=== PATIENT | female | born 1935 | race Caucasian/White ===

== ENCOUNTER → 2016-03-14 | Outpatient (CLI) | payer MEDICARE, BC ==
[~2016-03-14] MED LIST: ASPI1TAB69 PO; ASPI81TA11 PO; ASPI81TA82 PO; CALC1TAB87 PO; CALC500T15 PO; CART120C PO; CART120C2 PO; CENTTAB PO; DYAZ PO; GLUC750T22 OR; GLUCTAB6 PO; HYDR-3516 PO; ISOS10TA PO; ISOSM20 PO; LACTCAP8 PO; METF750T PO; MULT1TAB PO; OMEG100010 PO; SIMV40 PO; TRIA37.53 PO; ZOCO40TA PO; [UNRECOGNIZED DRUG - CODE] PO; [UNRECOGNIZED DRUG - CODE] PO; [UNRECOGNIZED DRUG - OTHER] PO
[2016-03-14 14:02] LABS: AUTOMATED NEUTROPHIL # 5.4 TH/MM3 (1.8-7.7); BASOPHIL # 0.1 TH/MM3 (0-0.2); BASOPHIL % 0.8 % (0.0-2.0); EOSINOPHIL # 0.3 TH/MM3 (0-0.4); EOSINOPHIL % 3.5 % (0.0-4.0); HEMATOCRIT 42.4 % (35.0-46.0); HEMO FLAGS DIFF FINAL; LYMPH % 27.7 % (9.0-44.0); LYMPHOCYTE # 2.4 TH/MM3 (1.0-4.8); MEAN CELL VOLUME 81.6 FL (80.0-100.0); MEAN CORPUSCULAR HEMOGLOBIN 27.6 PG (27.0-34.0); MEAN CORPUSCULAR HGB CONC 33.8 % (32.0-36.0); MONO % 6.4 % (0.0-8.0); NEUT % 61.6 % (16.0-70.0); PLATELET COUNT 257 TH/MM3 (150-450); RED CELL DISTRIBUTION WIDTH 14.9 % (11.6-17.2); WHITE BLOOD COUNT 8.7 TH/MM3 (4.0-11.0)
[2016-03-14 14:05] LABS: BLOOD, URINE NEG (NEG); GLUCOSE,URINE NEG (NEG); KETONE, URINE NEG (NEG); NITRITE,URINE NEG (NEG); PH, URINE 6.5 (5.0-8.5); SQUAMOUS EPITHELIAL CELL URINE 1 /hpf (0-5); TRANSITIONAL EPI CELLS, URINE <1 /hpf; URINE COLOR YELLOW (YELLW/STRAW)
[2016-03-14 14:06] LABS: COMMENT (UR) CULT NOT INDICATED; CULTURE IF INDICATED CULT NOT INDICATED
[2016-03-14 14:34] LABS: BICARBONATE 28.1 MEQ/L (21.0-32.0); POTASSIUM 3.9 MEQ/L (3.5-5.1)
--- NOTE | 2016-03-14 15:59 | RADRPT ---
EXAM DATE/TIME: 03/14/2016 15:29 [place] COMPARISON: No previous studies available for comparison. INDICATIONS : Evaluate for pneumonia, pneumothorax or communicable disease. Preop for A&P, bladder and rectal wall repair on 03/16/16 MEDICAL HISTORY : None. SURGICAL HISTORY : None. ENCOUNTER: Initial ACUITY: 1 day PAIN SCORE: 0/10 LOCATION: Bilateral chest FINDINGS: The cardiac and mediastinal contours are within normal limits. The lungs demonstrate chronic intersti tial changes but are otherwise clear. The visualized bony structures are grossly intact. CONCLUSION: 1. No acute cardiopulmonary findings. Michi Honeycutt MD on March 14, 2016 at 15:57 Board Certified Radiologist. This report was verified electronically.
--- NOTE | 2016-03-15 16:23 | EKG ---
Date Performed: 03/14/2016 Time Performed: 13:51:36 PTAGE: 80 years EKG: Sinus rhythm Since previous tracing, no significant change noted BORDERLINE ECG PREVIOUS TRACING : 06/07/2011 06.40 DOCTOR: Casandra Gibbs Interpretating Date/Time 03/15/2016 16:21:10
== END ==
LOC: CPRE 13:22
PROVIDERS: ATTEND Obstetrics & Gynecology
DX: Z01.810 Encounter for preprocedural cardiovascular examination (principal); Z01.812 Encounter for preprocedural laboratory examination; Z01.818 Encounter for other preprocedural examination; N81.10 Cystocele, unspecified; N81.6 Rectocele; N81.5 Vaginal enterocele
CPT/HCPCS: 36415; 71020; 80048; 81001; 85025; 93005

== ENCOUNTER 2016-03-16 11:56 | Observation (INO) | payer MEDICARE, BC ==
--- NOTE | 2016-03-15 11:09 | MH ---
cc: HAILEY MILLER M.D. DATE OF ADMISSION 03/16/2016 ADMISSION DIAGNOSIS Cystocele, rectocele, enterocele. HISTORY OF PRESENT ILLNESS This is a 80-year-old single white female para 2-0-0-2 with a history of recurrent prolapse tissue of vagina refractory to conservative care, she is now admitted for repair procedure. PAST MEDICAL HISTORY Her past medical history is extensive: 1. Tonsillectomy in 1941 2. Appendectomy 1961 3. Hysterectomy with left salpingo-oophorectomy in 1984 4. Laparoscopic cholecystectomy in 1988 5. Left breast biopsy in 1993 6. Fractured left ankle in 1994 requiring pins and plate 7. She has multiple eye procedures. 8. She has had AP repair in 2005. MEDICATIONS Medications include: 1. Cartia 2. Triamterine, hydrochlorothiazide 3. Zocor 4. Isosorbide ALLERGIES None TRANSFUSIONS None OBSTETRICAL HISTORY Two vaginal delivers. SOCIAL HISTORY Retired, single. Alcohol, tobacco and drugs are none. FAMILY HISTORY Noncontributory PHYSICAL EXAM Exam reveals an elderly white female. VITAL SIGNS: Stable. HEENT: Exam is normal. CHEST: Clear. CARDIAC: Regular rate. BREASTS: Symmetrical. ABDOMEN: Benign. PELVIC: Reveals a second and third-degree cystocele, rectocele, and enterocele. Bimanual no mass or pain. ASSESSMENT As above. PLAN She is now admitted vaginal AP repair, closure of enterocele. While in the office, I explained the procedures, the risks, benefits and complications and possibly recurrent prolapse and patient would like to proceed. MD NINO Newby/MEGHA /8:10 AM /10:59 AM
[~2016-03-16] VITALS: Ht 154.9 cm; Wt 88.0 kg
[~2016-03-16 11:56] MED LIST changes: -ASPI81TA11 PO; -ASPI81TA82 PO; -CALC1TAB87 PO; -CART120C2 PO; -DYAZ PO; -GLUC750T22 OR; -HYDR-3516 PO; -ISOSM20 PO; -LACTCAP8 PO; -MULT1TAB PO; -SIMV40 PO; -[UNRECOGNIZED DRUG - CODE] PO; -[UNRECOGNIZED DRUG - OTHER] PO
[2016-03-16] MEDS ORDERED: KETOROLAC TROMETHAMINE 60 MG/2 ML (IM) VIAL IM ONE (12:00)
[2016-03-16] MEDS ORDERED: ePHEDrine/NS 50 MG/5 ML SYR IV ONE (12:00)
[2016-03-16] MEDS ORDERED: ONDANSETRON HCL 4 MG/2 ML VIAL IV PUSH ONE (12:00)
[2016-03-16] MEDS ORDERED: LACTATED RINGER'S 1000 ML IV SCH (12:00)
[2016-03-16] MEDS ORDERED: PROPOFOL 200 MG/20 ML AMP IV ONE (12:00)
[2016-03-16] MEDS ORDERED: SODIUM CHLORID 0.9% 500 ML IV SCH (12:00)
[2016-03-16] MEDS ORDERED: ACETAMINOPHEN 1000 MG/100 ML VIAL IV SCH (12:30)
[2016-03-16] MEDS ORDERED: METOPROLOL TARTRATE 25 MG TAB PO PRN (12:30)
[2016-03-16] MEDS ORDERED: INSULIN HUMAN REGULAR 1,000 UNITS/10 ML VIAL SQ PRN (12:30)
[2016-03-16] MEDS ORDERED: ceFAZolin 2 GM PREMIX 50 ML IV SCH (12:30)
[2016-03-16 12:43] VITALS: BP 160/80; PULSE 62; RESP 20; TEMP 98.6; O2SAT 97
[2016-03-16] MEDS ORDERED: ESTROGENS CONJUGATED VAG CREA 15 APPL/30 GM TUBE ONE (15:02)
[2016-03-16] MEDS ORDERED: FAMOTIDINE 20 MG/2 ML VIAL ONE (15:04)
[2016-03-16] MEDS ORDERED: MIDAZOLAM HCL 2 MG/2 ML VIAL ONE (15:04)
[2016-03-16] MEDS ORDERED: DEXAMETHASONE SOD PHOS 4 MG/ML VIAL ONE (15:04)
[2016-03-16] MEDS ORDERED: fentaNYL CITRATE 250 MCG/5 ML AMP ONE (15:09)
[2016-03-16] MEDS ORDERED: SUGAMMADEX SODIUM 200 MG/2 ML VIAL IV PUSH ONE ×2 (16:05)
[2016-03-16] MEDS ORDERED: ONDANSETRON ODT 4 MG TAB PO PRN (16:15)
[2016-03-16] MEDS ORDERED: SODIUM CHLORIDE 0.9% FLUSH 5 ML FLUSH FLUSH PRN (16:15)
[2016-03-16] MEDS ORDERED: ONDANSETRON HCL 4 MG/2 ML VIAL IV PRN (16:15)
[2016-03-16] MEDS ORDERED: HYDROmorphone HCL PF 1 MG/ML VIAL IV PRN (16:15)
[2016-03-16] MEDS ORDERED: PROMETHAZINE INJ 25 MG/ML VIAL IM PRN (16:15)
[2016-03-16] MEDS ORDERED: ZOLPIDEM TARTRATE 5 MG TAB PO PRN (16:15)
[2016-03-16] MEDS ORDERED: PROMETHAZINE HCL 25 MG TAB PO PRN (16:15)
[2016-03-16] MEDS ORDERED: diphenhydrAMINE HCL 25 MG CAP PO PRN (16:15)
[2016-03-16] MEDS: DOCUSATE SODIUM 100 MG CAP PO SCH (16:30)
[2016-03-16] MEDS ORDERED: DO NOT ADM ANY ANTICOAGULANT DRUGS XX PRN (16:45)
[2016-03-16] MEDS ORDERED: ONDANSETRON INJ 8 MG in DEXTROSE 5% IN WATER INJ 50 ML IV PRN ×2 (16:45)
[2016-03-16] MEDS ORDERED: PILL SPLITTER OTHER PRN (16:45)
[2016-03-16] MEDS: D5-1/2 NS + KCL 20 MEQ INJ 1,000 ML IV SCH (17:00)
[2016-03-16 17:51] VITALS: BP 121/58; PULSE 66; RESP 16; TEMP 96.4; O2SAT 94
[2016-03-16 20:13] VITALS: BP 146/60; PULSE 80; RESP 18; TEMP 96.4; O2SAT 94
[2016-03-16] MEDS ORDERED: SODIUM CHLORIDE 0.9% FLUSH 5 ML FLUSH FLUSH SCH (21:00)
[2016-03-17] VITALS: BP 134/63; PULSE 82; RESP 18; TEMP 97.4; O2SAT 97
[2016-03-17] MEDS: DOCUSATE SODIUM 100 MG CAP PO SCH ×2 (00:06→08:48)
[2016-03-17] MEDS: ISOSORBIDE DINITRATE 10 MG TAB PO SCH ×2 (00:07→08:47)
[2016-03-17] MEDS: ACETAMINOPHEN 1000 MG/100 ML VIAL IV SCH ×2 (00:08→06:54)
[2016-03-17] MEDS: D5-1/2 NS + KCL 20 MEQ INJ 1,000 ML IV SCH (00:09)
[2016-03-17] MEDS: KETOROLAC TROMETHAMINE 30 MG/ML (IVP) VIAL IVP SCH ×2 (00:10→06:53)
[2016-03-17 05:00] VITALS: BP 115/54; PULSE 68; RESP 16; TEMP 97.1; O2SAT 97
[2016-03-17 06:59] LABS: AUTOMATED NEUTROPHIL # 9.6 TH/MM3 (1.8-7.7); BASOPHIL % 0.1 % (0.0-2.0); HEMATOCRIT 36.9 % (35.0-46.0); HEMO FLAGS DIFF FINAL; LYMPH % 6.7 % (9.0-44.0); LYMPHOCYTE # 0.7 TH/MM3 (1.0-4.8); MEAN CORPUSCULAR HEMOGLOBIN 27.6 PG (27.0-34.0); MONO % 2.1 % (0.0-8.0); NEUT % 91.1 % (16.0-70.0); PLATELET COUNT 215 TH/MM3 (150-450); RED BLOOD COUNT 4.55 MIL/MM3 (4.00-5.30); WHITE BLOOD COUNT 10.6 TH/MM3 (4.0-11.0)
[2016-03-17 07:03] LABS: BICARBONATE 25.6 MEQ/L (21.0-32.0); POTASSIUM 3.8 MEQ/L (3.5-5.1)
[2016-03-17 07:35] VITALS: BP 126/63; PULSE 66; RESP 20; TEMP 96.3; O2SAT 97
[2016-03-17 08:10] VITALS: O2SAT 95
--- NOTE | 2016-03-17 08:39 | HHI.DCPOC ---
Discharge Care Plan Report Symptoms to Your Doctor -Temperate above 100.5 degrees -Redness, of incision or excessive or foul smelling drainage -Unusual pain or calf pain -Increased vaginal bleeding -Painful or difficulty urinating -Feelings of extreme sadness or anxiety after 2 weeks Goals to Promote Your Health * To prevent worsening of your condition and complications * To maintain your health at the optimal level Directions to Meet Your Goals Take your medications as prescribed Follow your dietary instruction Follow activity as directed Ensure plenty of rest for recovery Drink fluids for hydration Keep your appointments as scheduled Take your immunizations and boosters as scheduled If your symptoms worsen call your PCP, if no PCP go to Urgent Care Center or Emergency Room Smoking is Dangerous to Your Health. Avoid second hand smoke Call the 24-hour crisis hotline for domestic abuse at rFitz Ramirez MD Mar 17, 2016 08:39
[2016-03-17] MEDS ORDERED: TRIAMTERENE/HCTZ 37.5 MG/25 MG CAP PO SCH (09:00)
[2016-03-17] MEDS ORDERED: metFORMIN HCL 500 MG TAB PO SCH (09:00)
[2016-03-17] MEDS ORDERED: DILTIAZEM-CD 120 MG CAP ER PO SCH (09:00)
--- NOTE | 2016-03-22 18:32 | MP ---
cc: HAILEY MILLER DATE OF SURGERY 03/16/2016 PREOPERATIVE DIAGNOSIS Rectocele, cystocele, enterocele. POSTOPERATIVE DIAGNOSIS Rectocele, cystocele, enterocele. PROCEDURE Vaginal AP repair, vaginal closure of enterocele. ANESTHESIA General ET ESTIMATED BLOOD LOSS About 50 cc or less FLUIDS 700 cc crystalloid OBJECTIVE FINDINGS Following induction of adequate general endotracheal anesthesia, the patient was prepped and draped supine on the operating table dorsolithotomy position in the usual sterile fashion with the bladder being drained via Singh catheterization. Examination revealed a third-degree rectocele, second degree enterocele and a very small cystocele at the base of the bladder. The repair was performed by opening up the perineum with a V-shaped wedge of scar tissue removed. The perineum was held with Allis clamps. The vagina was undermined using Allis clamps for traction, Metzenbaum scissors for dissection over the rectocele, enterocele and the cystocele. The vaginal mucosa was from the underlying perivesical fascia, enterocele sac and the perirectal fascia. The base of the bladder was reapproximated with 2-0 stitches in [place] fashion to approximate the perivesical fascia and then the excess anterior vaginal mucosa was trimmed and reapproximated with a interrupted 2-0 Vicryl in [id number] fashion. The enterocele sac was plicated with 2-0 Vicryl stitches and the rectocele was corrected with a running stitch of 2-0 Vicryl pulling the perirectal fascia over the rectocele in two layers with a running stitch. Excess posterior vaginal mucosa was trimmed and the posterior vaginal wall was closed with running locking stitch of 2-0 Vicryl. The perineum was now reapproximated with a running interrupted stitch of 0-Vicryl and a running 2-0 Vicryl. Post completion of the procedure, this revealed good support, good hemostasis. No bleeding. Vagina was packed with 2-inch gauze moistened with Premarin cream. Rectal exam was normal. All counts were correct. The patient's legs taken out of the stirrups and she was awakened and taken to the recovery room in good position. MD NINO Newby/MEGHA /4:17 PM /6:23 PM
== END 2016-03-17 09:47 | disposition home or self-care (01) ==
LOC: HSDC 11:56 → HSDI 16:13 → HOCA 17:19
PROVIDERS: ADMIT Obstetrics & Gynecology; ATTEND Obstetrics & Gynecology
DX: N81.10 Cystocele, unspecified (principal); N81.6 Rectocele; N81.5 Vaginal enterocele; I10 Essential (primary) hypertension; E78.5 Hyperlipidemia, unspecified; E11.9 Type 2 diabetes mellitus without complications; Z79.84 Long term (current) use of oral hypoglycemic drugs; Z90.49 Acquired absence of other specified parts of digestive tract
CPT/HCPCS: 00942; 57265; 80048; 82948; 85025; 88302; 94150; G0378; J0131; J0690; J1100; J1885; J2250; J2405; J3010; J3480; J7120

== ENCOUNTER 2016-07-21 16:42 | Inpatient (IN) | payer MEDICARE, BC ==
[~2016-07-21] VITALS: Ht 156.2 cm; Wt 87.2 kg
[~2016-07-21 16:42] MED LIST changes: -ASPI1TAB69 PO; -CALC500T15 PO; -CENTTAB PO; -[UNRECOGNIZED DRUG - CODE] PO
[2016-08-03] MEDS ORDERED: [UNRECOGNIZED DRUG - CODE] PO (08:59)
[2016-08-03] MEDS ORDERED: CALC1TAB87 PO (09:02)
[2016-08-03] MEDS ORDERED: MULT1TAB PO (09:03)
[2016-08-03] MEDS ORDERED: ASPI81TA11 PO (09:04)
[2016-08-03] MEDS ORDERED: LACTCAP8 PO (09:05)
[2016-08-10 11:25] VITALS: BP 116/67; PULSE 81; RESP 18; TEMP 98.9; O2SAT 98
[2016-08-10] MEDS ORDERED: BUPIVACAINE/EPINEPHRINE 0.5% PF 10 ML VIAL ONE (11:28)
[2016-08-10] MEDS ORDERED: METRONIDAZOLE 500 MG/100 ML ISONTONIC SOLN IV SCH (11:30)
[2016-08-10] MEDS ORDERED: CHLORHEXIDINE GLUCONATE 2 % 1 PACK (2 CLOTHS) TOPICAL PRN (11:30)
[2016-08-10] MEDS ORDERED: SODIUM CHLORID 0.9% 500 ML IV PRN (11:30)
[2016-08-10] MEDS ORDERED: INSULIN HUMAN REGULAR 1,000 UNITS/10 ML VIAL SQ PRN (11:30)
[2016-08-10] MEDS ORDERED: POVIDONE IODINE 5% (ANTISEPSIS KIT) 4 APPLICATIONS EACH NARE PRN (11:30)
[2016-08-10] MEDS ORDERED: METOPROLOL TARTRATE 25 MG TAB PO PRN (11:30)
[2016-08-10] MEDS: DEXT 5%-NACL 0.9% 1000 ML INJ 1,000 ML IV SCH ×2 (11:30→19:30)
[2016-08-10] MEDS ORDERED: ALVIMOPAN 12 MG CAPSULE - On Call PO SCH (11:30)
[2016-08-10] MEDS ORDERED: LACTATED RINGER'S 1000 ML IV PRN (11:30)
[2016-08-10] MEDS ORDERED: ceFAZolin 1,000 MG/NS 100 ML IV SCH ×2 (11:30)
[2016-08-10] MEDS: ALVIMOPAN 12 MG CAPSULE - Post-op dosing PO SCH (11:35)
[2016-08-10] MEDS ORDERED: ONDANSETRON HCL 4 MG/2 ML VIAL IV PUSH ONE (12:00)
[2016-08-10] MEDS ORDERED: PROPOFOL 200 MG/20 ML AMP IV ONE (12:00)
[2016-08-10] MEDS ORDERED: FAMOTIDINE 20 MG/2 ML VIAL ONE ×2 (12:12→12:59)
--- NOTE | 2016-08-10 12:54 | PD.HP.UP ---
H&P Update Note The Pre-Admit History and Physical Examination regarding the above named patient was reviewed (including, but not limited to, vital signs, heart, lungs, co-morbid conditions), and upon re-examination it is noted that: the patient's condition has not significantly changed since the last examination. Andres Coleman MD Aug 10, 2016 12:54
[2016-08-10] MEDS ORDERED: MIDAZOLAM HCL 2 MG/2 ML VIAL ONE (13:00)
[2016-08-10] MEDS ORDERED: DEXAMETHASONE SOD PHOS 4 MG/ML VIAL ONE (13:00)
[2016-08-10] MEDS ORDERED: SILVER SULFADIAZINE/LIDOCAINE CREAM 60 GM JAR SCH (13:15)
[2016-08-10] MEDS ORDERED: LIDOCAINE 1%/EPINEPHrine 1:100,000 SOLN 30 ML VIAL INFIL ONE (13:28)
[2016-08-10] MEDS ORDERED: SUGAMMADEX SODIUM 200 MG/2 ML VIAL IV PUSH ONE ×2 (14:15)
[2016-08-10] MEDS: D5-NS + KCL 20 MEQ INJ 1,000 ML IV SCH (14:47)
[2016-08-10] MEDS ORDERED: fentaNYL CITRATE 250 MCG/5 ML AMP ONE (14:55)
[2016-08-10] MEDS ORDERED: Post-op Orders (for Pharmacy) MISC XX ONE (15:00)
[2016-08-10] MEDS ORDERED: ONDANSETRON HCL 4 MG/2 ML VIAL IV PRN (15:00)
[2016-08-10] MEDS ORDERED: POTASSIUM CHLOR 40 MEQ PREMIX 100 ML IV PRN (15:00)
[2016-08-10] MEDS ORDERED: ENALAPRILAT 2.5 MG/2 ML VIAL IV PRN (15:00)
[2016-08-10] MEDS ORDERED: POTASSIUM CHLOR 20 MEQ PREMIX 100 ML IV PRN (15:00)
[2016-08-10] MEDS ORDERED: NALOXONE HCL 0.4 MG/ML AMP IV PRN (15:00)
[2016-08-10] MEDS ORDERED: ACETAMINOPHEN/HYDROcodone 325 MG/5 MG TAB PO PRN ×2 (15:00)
[2016-08-10] MEDS ORDERED: MORPHINE SULFATE 30 MG/30 ML PCA IV SCH (15:00)
[2016-08-10] MEDS ORDERED: BENZOCAINE 6 MG/MENTHOL 10 MG LOZENGE BUCCAL PRN (15:00)
[2016-08-10] MEDS ORDERED: ACETAMINOPHEN 325 MG TAB PO PRN (15:00)
[2016-08-10] MEDS ORDERED: SODIUM CHLORIDE 0.9% FLUSH 5 ML FLUSH IVF PRN (15:00)
[2016-08-10] MEDS ORDERED: BUPIVACAINE HCL PF 0.5% 30 ML VIAL NB SCH (15:00)
[2016-08-10] MEDS ORDERED: KETOROLAC TROMETHAMINE 30 MG/ML (IVP) VIAL IVP PRN (15:00)
[2016-08-10] MEDS ORDERED: ENALAPRILAT 1.25 MG/ML VIAL IV PRN (15:00)
[2016-08-10 16:00] VITALS: BP 132/86; PULSE 67; RESP 19; TEMP 96.6; O2SAT 95
[2016-08-10] MEDS ORDERED: GLUCAGON 1 MG/ML VIAL OTHER PRN (17:00)
[2016-08-10] MEDS: DILTIAZEM-CD 120 MG CAP ER PO SCH (17:00)
[2016-08-10] MEDS ORDERED: DEXTROSE 50% IN WATER 50 ML VIAL(D50) IV PRN (17:00)
[2016-08-10] MEDS: ISOSORBIDE DINITRATE 10 MG TAB PO SCH (17:25)
[2016-08-10 18:08] VITALS: O2SAT 95
[2016-08-10 20:00] VITALS: BP 151/67; PULSE 69; RESP 16; TEMP 96.6; O2SAT 93
[2016-08-10] MEDS: SODIUM CHLORIDE 0.9% FLUSH 5 ML FLUSH IVF SCH (20:09)
[2016-08-10] MEDS: metroNIDAZOLE 500 MG INJ 100 ML IV SCH (20:09)
[2016-08-10] MEDS: INSULIN NovoLIN REGULAR SUPPLEMENTAL SCALE SQ SCH (20:09)
[2016-08-10] MEDS: PCA - TOTAL MG MORPHINE DELIVERED PER SHIFT SCH (20:10)
[2016-08-11] VITALS (8 sets, daily range): BP systolic 112–150; BP diastolic 58–67; PULSE 55–74; RESP 17–18; TEMP 96.4–98.4; O2SAT 92–97
[2016-08-11] MEDS: D5-NS + KCL 20 MEQ INJ 1,000 ML IV SCH ×4 (01:00→18:07)
[2016-08-11] MEDS: DEXT 5%-NACL 0.9% 1000 ML INJ 1,000 ML IV SCH ×3 (03:30→16:48)
[2016-08-11 05:06] LABS: AUTOMATED NEUTROPHIL # 9.1 TH/MM3 (1.8-7.7); BASOPHIL % 0.1 % (0.0-2.0); HEMATOCRIT 37.2 % (35.0-46.0); HEMO FLAGS DIFF FINAL; LYMPHOCYTE # 0.6 TH/MM3 (1.0-4.8); MEAN CELL VOLUME 80.8 FL (80.0-100.0); MEAN CORPUSCULAR HEMOGLOBIN 27.6 PG (27.0-34.0); MEAN CORPUSCULAR HGB CONC 34.1 % (32.0-36.0); MONO % 4.1 % (0.0-8.0); NEUT % 89.8 % (16.0-70.0); PLATELET COUNT 217 TH/MM3 (150-450); RED BLOOD COUNT 4.61 MIL/MM3 (4.00-5.30); RED CELL DISTRIBUTION WIDTH 15.3 % (11.6-17.2); WHITE BLOOD COUNT 10.1 TH/MM3 (4.0-11.0)
[2016-08-11 05:24] LABS: BICARBONATE 25.9 MEQ/L (21.0-32.0); POTASSIUM 3.7 MEQ/L (3.5-5.1)
[2016-08-11] MEDS: metroNIDAZOLE 500 MG INJ 100 ML IV SCH ×2 (05:48→12:34)
[2016-08-11] MEDS: PCA - TOTAL MG MORPHINE DELIVERED PER SHIFT SCH ×3 (05:49→20:30)
[2016-08-11] MEDS: INSULIN NovoLIN REGULAR SUPPLEMENTAL SCALE SQ SCH ×4 (05:55→20:33)
--- NOTE | 2016-08-11 07:38 | HHI.PR ---
Subjective Remarks C/R Surg POD # 1 afebrile, VSS UO good min rectal disch Objective - Vital Signs Date Time Temp Pulse Resp B/P Pulse Ox O2 Delivery O2 Flow Rate FiO2 08/11/16 05:49 18 08/11/16 04:00 98.3 74 133/64 92 08/10/16 18:08 Nasal Cannula 2.00 Result Diagram: 08/11/16 04308/11/16 0433 Objective Remarks PE alert Abd - soft, min tympany Rectal - dry, mild swelling A/P Assessment and Plan Imp: stable post op OOB cont IVF hold PO Andres Coleman MD Aug 11, 2016 07:38
[2016-08-11] MEDS ORDERED: SILVER SULFADIAZINE/LIDOCAINE CREAM 60 GM JAR RECTAL PRN (07:45)
[2016-08-11] MEDS: SODIUM CHLORIDE 0.9% FLUSH 5 ML FLUSH IVF SCH ×2 (09:00→20:30)
[2016-08-11] MEDS: PANTOPRAZOLE SODIUM 40 MG VIAL IVP SCH (09:00)
[2016-08-11] MEDS: PRAVASTATIN SOD 80 MG TAB PO SCH (09:20)
[2016-08-11] MEDS: DILTIAZEM-CD 120 MG CAP ER PO SCH (09:21)
[2016-08-11] MEDS: ISOSORBIDE DINITRATE 10 MG TAB PO SCH (09:21)
[2016-08-11] MEDS: PANTOPRAZOLE SOD 40 MG DELAYED RELEASE TAB PO SCH (09:21)
[2016-08-11] MEDS: TRIAMTERENE/HCTZ 37.5 MG/25 MG CAP PO SCH (09:21)
[2016-08-11] MEDS: ALVIMOPAN 12 MG CAPSULE - Post-op dosing PO SCH ×2 (09:22→20:30)
[2016-08-11] MEDS: SILVER SULFADIAZINE/LIDOCAINE CREAM 60 GM JAR RECTAL PRN ×2 (09:24→22:46)
[2016-08-12] VITALS (7 sets, daily range): BP systolic 122–141; BP diastolic 53–66; PULSE 55–68; RESP 18–20; TEMP 97–97.7; O2SAT 95–97
[2016-08-12] MEDS: DEXT 5%-NACL 0.9% 1000 ML INJ 1,000 ML IV SCH ×3 (03:30→20:50)
[2016-08-12] MEDS: PCA - TOTAL MG MORPHINE DELIVERED PER SHIFT SCH (04:56)
[2016-08-12] MEDS: INSULIN NovoLIN REGULAR SUPPLEMENTAL SCALE SQ SCH ×4 (04:56→21:00)
[2016-08-12] MEDS: D5-NS + KCL 20 MEQ INJ 1,000 ML IV SCH (04:57)
[2016-08-12 06:05] LABS: AUTOMATED NEUTROPHIL # 6.8 TH/MM3 (1.8-7.7); BASOPHIL % 0.3 % (0.0-2.0); EOSINOPHIL # 0.1 TH/MM3 (0-0.4); EOSINOPHIL % 1.1 % (0.0-4.0); HEMATOCRIT 36.4 % (35.0-46.0); HEMO FLAGS DIFF FINAL; LYMPH % 17.2 % (9.0-44.0); LYMPHOCYTE # 1.5 TH/MM3 (1.0-4.8); MEAN CELL VOLUME 80.8 FL (80.0-100.0); MEAN CORPUSCULAR HEMOGLOBIN 27.3 PG (27.0-34.0); MEAN CORPUSCULAR HGB CONC 33.8 % (32.0-36.0); NEUT % 75.4 % (16.0-70.0); PLATELET COUNT 199 TH/MM3 (150-450); RED CELL DISTRIBUTION WIDTH 15.2 % (11.6-17.2)
[2016-08-12 06:27] LABS: BICARBONATE 25.6 MEQ/L (21.0-32.0); POTASSIUM 3.6 MEQ/L (3.5-5.1)
[2016-08-12] MEDS: SODIUM CHLORIDE 0.9% FLUSH 5 ML FLUSH IVF SCH ×2 (09:00→20:49)
[2016-08-12] MEDS: PANTOPRAZOLE SODIUM 40 MG VIAL IVP SCH (09:00)
[2016-08-12] MEDS: ISOSORBIDE DINITRATE 10 MG TAB PO SCH (09:38)
[2016-08-12] MEDS: DILTIAZEM-CD 120 MG CAP ER PO SCH (09:39)
[2016-08-12] MEDS: TRIAMTERENE/HCTZ 37.5 MG/25 MG CAP PO SCH (09:39)
[2016-08-12] MEDS: PANTOPRAZOLE SOD 40 MG DELAYED RELEASE TAB PO SCH (09:39)
[2016-08-12] MEDS: PRAVASTATIN SOD 80 MG TAB PO SCH (09:39)
[2016-08-12] MEDS: ALVIMOPAN 12 MG CAPSULE - Post-op dosing PO SCH (09:39)
--- NOTE | 2016-08-12 10:12 | MP ---
cc: STUART SERVIN M.D., JOHN DATE OF SURGERY: 08/11/2016 PREOPERATIVE DIAGNOSIS Rectovaginal fistula. PROCEDURE Exam under anesthesia with complex repair of rectovaginal fistula. POSTOPERATIVE DIAGNOSIS Rectovaginal fistula. SURGEON Dr. Servin PROBLEM MANAGER Dr. Fernie Heredia DETAILS OF PROCEDURE The patient was placed in the supine position. After adequate general anesthesia she was turned and placed in the prone jackknife position and supported appropriately. Buttocks were then taped apart, prepped with Betadine solution and draped in the usual sterile fashion. Local anesthesia was obtained by injection of 1% Xylocaine and 0.5% Marcaine with epinephrine. The anal canal was dilated and a half-coughlin retractor was inserted. Examination revealed a rather large defect in the rectovaginal septum midway up from the dentate line. The septum did appear to be fairly thin. No obvious inflammatory changes were seen. The rectal mucosa appeared normal. There was a rather large anterior hemorrhoid prolapsing out through the right anterior quadrant. First the right anterior hemorrhoid was excised off the internal and external sphincter up to the area of the fistula. This gave better visualization of the defect. The rectal mucosa was then elevated around the fistula opening and it from the vaginal mucosa. There was some rectal muscle which was felt to be reasonable for repair. There was also the cul-de-sac with some fat and preperitoneal tissue which also seemed to be reasonable to incorporate in the repair. After adequate mobilization of the mucosa proximally the vaginal mucosa was elevated off the rectal muscle. This enabled easier mobilization for repair of the defect. After full mobilization the vaginal mucosa was closed with several interrupted Vicryl sutures without tension and apparent good blood supply. It did appear to be a rather secure closure. The preperitoneal fat was then advanced over the repair and sutured down to the dentate line. Finally the rectal mucosa was mobilized further and advanced over the closure excising some of the distal mucosa which appeared to be somewhat questionably viable. The final flap did appear to be well-vascularized and under no tension. Vicryl sutures were used to secure this in place and close the lateral extensions. At completion the three layers appeared to be fairly secure. There was good blood supply, very little tension. It was felt that the repair was fairly secure and could be left without a diverting colostomy. The rectum was therefore irrigated and additional hemostasis achieved. Small Fluff dressing was placed externally. The patient tolerated the procedure quite well and was brought to the recovery room in stable condition. The sponge and needle counts were correct at the end of the procedure. MD LARS Roland/RAJENDRA /7:58 AM /10:06 AM
[2016-08-12] MEDS: SILVER SULFADIAZINE/LIDOCAINE CREAM 60 GM JAR RECTAL PRN (20:58)
--- NOTE | 2016-08-12 23:02 | HHI.PR ---
Subjective Remarks C/R Surg POD # 2 afebrile, VSS UO good some rectal disch Objective - Vital Signs Date Time Temp Pulse Resp B/P Pulse Ox O2 Delivery O2 Flow Rate FiO2 08/12/16 20:00 97.7 56 18 137/63 96 08/12/16 10:14 Nasal Cannula 2.00 Result Diagram: 08/12/16 0437 08/12/16 0437 Objective Remarks PE alert Abd - soft, min tympany Rectal - dry, mild swelling, no bleeding A/P Assessment and Plan Imp: OOB cont IVF hold PO Andres Coleman MD Aug 12, 2016 23:02
[2016-08-13] VITALS: BP 128/63; PULSE 58; RESP 18; TEMP 97.1; O2SAT 95
[2016-08-13] MEDS: INSULIN NovoLIN REGULAR SUPPLEMENTAL SCALE SQ SCH ×4 (05:20→21:00)
[2016-08-13 08:00] VITALS: BP 152/69; PULSE 61; RESP 17; TEMP 96.8; O2SAT 94
[2016-08-13] MEDS: PANTOPRAZOLE SODIUM 40 MG VIAL IVP SCH (09:00)
[2016-08-13] MEDS: SODIUM CHLORIDE 0.9% FLUSH 5 ML FLUSH IVF SCH ×2 (09:00→21:00)
[2016-08-13] MEDS: TRIAMTERENE/HCTZ 37.5 MG/25 MG CAP PO SCH (09:33)
[2016-08-13] MEDS: PANTOPRAZOLE SOD 40 MG DELAYED RELEASE TAB PO SCH (09:33)
[2016-08-13] MEDS: ISOSORBIDE DINITRATE 10 MG TAB PO SCH (09:33)
[2016-08-13] MEDS: DILTIAZEM-CD 120 MG CAP ER PO SCH (09:33)
[2016-08-13] MEDS: PRAVASTATIN SOD 80 MG TAB PO SCH (09:33)
[2016-08-13 12:00] VITALS: BP 118/57; PULSE 61; RESP 17; TEMP 95.9; O2SAT 94
--- NOTE | 2016-08-13 12:11 | HHI.PR ---
Subjective Remarks C/R Surg POD # 3 afebrile, VSS UO good some rectal disch, less Objective - Vital Signs Date Time Temp Pulse Resp B/P Pulse Ox O2 Delivery O2 Flow Rate FiO2 08/13/16 08:00 96.8 61 17 152/69 94 08/12/16 20:49 21 08/12/16 10:14 Nasal Cannula 2.00 Result Diagram: 08/12/16 0437 08/12/16 0437 Objective Remarks PE alert Abd - soft, min tympany Rectal - dry, mild swelling, no bleeding A/P Assessment and Plan Imp: OOB cont IVF start PO dc Andres Morton MD Aug 13, 2016 12:11
[2016-08-13 16:00] VITALS: BP 167/72; PULSE 54; RESP 17; TEMP 96.5; O2SAT 96
[2016-08-13 20:00] VITALS: BP 186/82; PULSE 60; RESP 20; TEMP 97; O2SAT 98
[2016-08-13] MEDS: DEXT 5%-NACL 0.9% 1000 ML INJ 1,000 ML IV SCH (21:29)
[2016-08-14] VITALS: BP 147/67; PULSE 58; RESP 20; TEMP 97.8; O2SAT 96
[2016-08-14] MEDS: INSULIN NovoLIN REGULAR SUPPLEMENTAL SCALE SQ SCH ×2 (05:39→11:00)
[2016-08-14] MEDS: SODIUM CHLORIDE 0.9% FLUSH 5 ML FLUSH IVF SCH (07:26)
[2016-08-14 08:00] VITALS: BP 133/64; PULSE 64; RESP 17; TEMP 97.5; O2SAT 96
[2016-08-14] MEDS: DILTIAZEM-CD 120 MG CAP ER PO SCH (08:58)
[2016-08-14] MEDS: PANTOPRAZOLE SOD 40 MG DELAYED RELEASE TAB PO SCH (08:58)
[2016-08-14] MEDS: PRAVASTATIN SOD 80 MG TAB PO SCH (08:58)
[2016-08-14] MEDS: ISOSORBIDE DINITRATE 10 MG TAB PO SCH (08:58)
[2016-08-14] MEDS: PANTOPRAZOLE SODIUM 40 MG VIAL IVP SCH (08:58)
[2016-08-14] MEDS: TRIAMTERENE/HCTZ 37.5 MG/25 MG CAP PO SCH (08:58)
[2016-08-14] MEDS: DEXT 5%-NACL 0.9% 1000 ML INJ 1,000 ML IV SCH (09:14)
[2016-08-14] MEDS ORDERED: HYDR-3516 PO (10:05)
--- NOTE | 2016-08-14 10:20 | HHI.PR ---
Subjective Remarks C/R Surg POD # 4 afebrile, VSS UO good +flatus Objective - Vital Signs Date Time Temp Pulse Resp B/P Pulse Ox O2 Delivery O2 Flow Rate FiO2 08/14/16 08:00 97.5 64 17 133/64 96 08/13/16 10:40 21 08/12/16 10:14 Nasal Cannula 2.00 Result Diagram: 08/12/1643608/12/16436 Objective Remarks PE alert Abd - soft, min tympany Rectal - dry, mild swelling, no bleeding A/P Assessment and Plan Imp: OOB cont IVF start PO, adv to full liquids dc plans Andres Coleman MD Aug 14, 2016 10:20
[2016-08-14 12:00] VITALS: BP 162/71; PULSE 57; RESP 17; TEMP 96.8; O2SAT 97
== END 2016-08-14 14:22 | disposition home or self-care (01) | DRG 331 ==
LOC: HSDI 08-10 10:44 → N07A 08-10 15:57
PROVIDERS: ADMIT Colon & Rectal Surgery; ATTEND Colon & Rectal Surgery
PROC: 0DQP0ZZ Repair Rectum, Open Approach (ICD-10-PCS; principal; 2016-08-11)
PROC: 0UQG0ZZ Repair Vagina, Open Approach (ICD-10-PCS; 2016-08-11)
DX: N82.3 Fistula of vagina to large intestine (principal)
CPT/HCPCS: 80048; 82948; 85025; 86850; 86900; 86901; 88304; 88305; 94150; J0690; J1100; J2250; J2270; J2405; J3010; J3480; J7042

== ENCOUNTER → 2016-08-03 | Outpatient (CLI) | payer MEDICARE, BC ==
[~2016-08-03] MED LIST changes: +ASPI1TAB69 PO; +ASPI81TA11 PO; +CALC1TAB87 PO; +CALC500T15 PO; +CENTTAB PO; +HYDR-3516 PO; +LACTCAP8 PO; +MULT1TAB PO; +[UNRECOGNIZED DRUG - CODE] PO; +[UNRECOGNIZED DRUG - CODE] PO
[2016-08-03 09:08] LABS: AUTOMATED NEUTROPHIL # 4.4 TH/MM3 (1.8-7.7); BASOPHIL # 0.1 TH/MM3 (0-0.2); EOSINOPHIL # 0.3 TH/MM3 (0-0.4); EOSINOPHIL % 4.3 % (0.0-4.0); HEMATOCRIT 42.3 % (35.0-46.0); HEMO FLAGS DIFF FINAL; LYMPHOCYTE # 2.4 TH/MM3 (1.0-4.8); MEAN CELL VOLUME 80.8 FL (80.0-100.0); MEAN CORPUSCULAR HEMOGLOBIN 27.1 PG (27.0-34.0); MEAN CORPUSCULAR HGB CONC 33.5 % (32.0-36.0); MONO % 6.1 % (0.0-8.0); NEUT % 57.6 % (16.0-70.0); PLATELET COUNT 238 TH/MM3 (150-450); RED BLOOD COUNT 5.23 MIL/MM3 (4.00-5.30); RED CELL DISTRIBUTION WIDTH 14.8 % (11.6-17.2); WHITE BLOOD COUNT 7.6 TH/MM3 (4.0-11.0)
[2016-08-03 09:10] LABS: BACTERIA, URINE RARE /hpf; BLOOD, URINE TRACE (NEG); COMMENT (UR) CULT NOT INDICATED; CULTURE IF INDICATED CULT NOT INDICATED; GLUCOSE,URINE NEG (NEG); HYALINE CAST, URINE 4 /lpf (RARE); KETONE, URINE NEG (NEG); MUCUS URINE FEW /lpf (OCC); NITRITE,URINE NEG (NEG); SQUAMOUS EPITHELIAL CELL URINE 8 /hpf (0-5); TRANSITIONAL EPI CELLS, URINE 1 /hpf; URINE COLOR YELLOW (YELLW/STRAW)
[2016-08-03 09:19] LABS: APTT (PATIENT) 26.5 SEC (24.3-30.1); PROTHROMBIN TIME - PATIENT 11.2 SEC (9.8-11.6)
[2016-08-03 09:35] LABS: ANION GAP 13 MEQ/L (5-15); AST (GOT) 17 U/L (15-37); BICARBONATE 25.9 MEQ/L (21.0-32.0); BLOOD UREA NITROGEN 16 MG/DL (7-18); CHLORIDE 101 MEQ/L (98-107); GLOMERULAR FILTRATION RATE 52 ML/MIN (>89); POTASSIUM 3.2 MEQ/L (3.5-5.1); SODIUM (NA) 140 MEQ/L (136-145)
[2016-08-03 09:42] LABS: GLUCOSE,FASTING 135 MG/DL (74-99)
[2016-08-03 09:49] LABS: ALKALINE PHOSPHATASE 80 U/L (45-117); ALT (GPT) 21 U/L (10-53); TOTAL BILIRUBIN ADULT 0.5 MG/DL (0.2-1.0)
--- NOTE | 2016-08-04 16:49 | EKG ---
Date Performed: 08/03/2016 Time Performed: 08:40:54 PTAGE: 80 years EKG: Sinus rhythm WITH OCCASIONAL VENTRICULAR PREMATURE COMPLEXES .5mm ST depression in the anterior lateral leads. Co nsider ischemia. ABNORMAL ECG PREVIOUS TRACING : 03/14/2016 13.51 DOCTOR: Karlos Jovel Interpretating Date/Time 08/04/2016 16:48:33
== END ==
LOC: CPRE 08:15
PROVIDERS: ATTEND Colon & Rectal Surgery
DX: Z01.810 Encounter for preprocedural cardiovascular examination (principal); Z01.811 Encounter for preprocedural respiratory examination; Z01.812 Encounter for preprocedural laboratory examination; N82.3 Fistula of vagina to large intestine; R94.31 Abnormal electrocardiogram [ECG] [EKG]
CPT/HCPCS: 36415; 80053; 81001; 85025; 85610; 85730; 93005